=== PATIENT | female | born 1990 | race Two or more races ===

== ENCOUNTER 2020-02-19 18:11 | Emergency (ER) | payer OTHER ==
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
[2020-02-19] MEDS ORDERED: LORazepam 2 MG/ML SDV VIAL IM ONE (18:21)
[2020-02-19] MEDS ORDERED: LORazepam 2 MG/ML SDV VIAL ONE (18:24)
[2020-02-19 18:55] VITALS: BP 141/110; TEMP 98.8; BMI 60.5
[2020-02-19 19:40] VITALS: PULSE 90
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
[2020-02-19] MEDS ORDERED: SODIUM CHLORIDE 0.9% 500 ML INFUS.BAG IV ONE (19:59)
[2020-02-19] MEDS ORDERED: ALPRAZolam 1 MG TABLET PO PRN (20:11)
[2020-02-19] MEDS ORDERED: ALPRAZolam 1 MG TABLET ONE (20:13)
[2020-02-19] MEDS ORDERED: HALOPERIDOL LACTATE 5 MG/ML IM ONE (20:47)
[2020-02-19] MEDS ORDERED: HALOPERIDOL LACTATE 5 MG/ML ONE (20:47)
[2020-02-19 22:58] LABS: BASO % 1.3 % (0-2.0); EOS % 1.5 % (0-4.5); HEMATOCRIT 31.9 % (32.4-45.2); LYMPH % 24.3 % (8-40); MCH 24.1 pg (25.7-33.7); MCHC 31.4 g/dl (32.0-36.0); MEAN CELL VOLUME 76.5 fl (80-96); MEAN PLT VOLUME 8.9 fl (7.5-11.1); MONO % 5.8 % (3.8-10.2); NEUT % 67.1 % (42.8-82.8); PLATELET COUNT 296 K/MM3 (134-434); RBC 4.17 M/mm3 (3.60-5.2); RDW 16.6 % (11.6-15.6); WHITE BLOOD COUNT 10.9 K/mm3 (4.0-10.0)
[2020-02-19 23:08] LABS: INR 1.23 (0.83-1.09); PROTHROMBIN TIME (PATIENT) 14.5 SEC (9.7-13.0)
[2020-02-19 23:11] LABS: ACTIVATED PTT 29.2 SECONDS (25.2-36.5)
[2020-02-19 23:32] LABS: ALBUMIN 3.2 g/dl (3.4-5.0); ALK PHOS 68 U/L (45-117); ANION GAP 9 MMOL/L (8-16); BLOOD UREA NITROGEN 7.1 mg/dL (7-18); CHLORIDE 107 mmol/L (98-107); CO2 22 mmol/L (21-32); CREATININE 0.6 mg/dL (0.55-1.3); GLUCOSE,RANDOM 74 mg/dL (74-106); POTASSIUM 4.2 mmol/L (3.5-5.1); SGOT/AST 22 U/L (15-37); SGPT/ALT 24 U/L (13-61); SODIUM 137 mmol/L (136-145); TOT PROT 7.6 g/dl (6.4-8.2)
[2020-02-19 23:41] LABS: BILIRUBIN,TOTAL 0.3 mg/dL (0.2-1)
--- NOTE | 2020-02-20 08:53 | EKG ---
Test Reason : Blood Pressure : / mmHG Vent. Rate : 103 BPM Atrial Rate : 103 BPM P-R Int : 148 ms QRS Dur : 076 ms QT Int : 352 ms P-R-T Axes : 040 016 049 degrees QTc Int : 461 ms SINUS TACHYCARDIA OTHERWISE NORMAL ECG NO PREVIOUS ECGS AVAILABLE Confirmed by Jerri Matthews ([id number]) on 02/20/2020 8:53:16 AM Referred By: Confirmed By:Jerri Matthews
== END 2020-02-20 00:35 | disposition home or self-care (01) ==
LOC: JER 18:11
PROC: 3E023NZ Introduction of Analgesics, Hypnotics, Sedatives into Muscle, Percutaneous Approach (ICD-10-PCS; principal; 2020-02-19)
PROC: 3E023GC Introduction of Other Therapeutic Substance into Muscle, Percutaneous Approach (ICD-10-PCS; 2020-02-19)
DX: F41.0 Panic disorder [episodic paroxysmal anxiety] (principal)
CPT/HCPCS: 36415; 71045-TC-FY; 80053; 84484; 84703; 85025; 85610; 85730; 93005; 93010; 99285-25

== ENCOUNTER 2024-11-23 16:52 | Emergency (ER) | payer SELFPAY ==
[2024-11-23 17:05] VITALS: BP 124/80; PULSE 109; RESP 20; TEMP 98.4; BMI 39.1
[2024-11-23] MEDS: KETOROLAC TROMETHAMINE 15 MG/ML VIAL IVPUSH ONE (18:13)
[2024-11-23] MEDS ORDERED: LIDOCAINE 4% PATCH TP ONE (18:15)
[2024-11-23] MEDS ORDERED: ACETAMINOPHEN INJECTION 100 ML ONE (18:15)
[2024-11-23] MEDS: LIDOCAINE 4% PATCH TP ONE (18:37)
[2024-11-23] MEDS: ACETAMINOPHEN 1000 MG/100 ML BAG IVPB ONE (18:37)
[2024-11-23 18:42] LABS: ABSOLUTE IMMATURE GRANULOCYTES 0.02 x10^3/uL (0.0-0.031); BASOPHILS # 0.05 x10^3/uL (0.01-0.08); EOSINOPHIL % 0.2 % (0.7-5.8); EOSINOPHILS # 0.02 x10^3/uL (0.04-0.36); HEMATOCRIT 40.1 % (34.1-44.9); HEMOGLOBIN 12.9 g/dL (11.2-15.7); MCHC 32.2 g/dl (32.2-35.5); MEAN CELL VOLUME 91.1 fl (79.4-94.8); MEAN PLT VOLUME 11.2 fl (9.4-12.3); MONOCYTE # 0.41 x10^3/uL (0.24-0.86); MONOCYTE % 4.9 % (4.7-12.5); PLATELET COUNT 231 x10^3/uL (182-369); RDW 12.6 % (12.1-16.8)
[2024-11-23 19:05] LABS: POTASSIUM 3.3 mmol/L (3.5-5.1)
[2024-11-23 19:07] LABS: CALCIUM 9.6 mg/dL (8.5-10.1)
[2024-11-23 19:08] LABS: ALBUMIN 3.3 g/dl (3.4-5.0); BLOOD UREA NITROGEN 7.3 mg/dL (7-18)
[2024-11-23 19:11] LABS: CREATININE 0.7 mg/dL (0.55-1.3)
[2024-11-23 19:12] LABS: BILIRUBIN,TOTAL 0.8 mg/dL (0.2-1)
[2024-11-23 19:13] LABS: TOT PROT 6.7 g/dl (6.4-8.2)
[2024-11-23] MEDS ORDERED: diazePAM 5 MG TABLET ONE (19:27)
[2024-11-23] MEDS: diazePAM 5 MG TABLET PO ONE (19:35)
[2024-11-23] MEDS ORDERED: KETOROLAC TROMETHAMINE 15 MG/ML VIAL ONE (19:39)
[2024-11-23] MEDS: KETOROLAC TROMETHAMINE 30 MG/1 ML VIAL IVPUSH ONE (19:41)
[2024-11-23 19:45] LABS: MAGNESIUM 1.8 mg/dL (1.8-2.4)
[2024-11-23] MEDS ORDERED: oxyCODONE HCL 5 MG TABLET ONE (20:47)
[2024-11-23] MEDS: oxyCODONE HCL 5 MG TABLET PO ONE (20:51)
[2024-11-23] MEDS ORDERED: LIDOCAINE PATCH REMOVAL MC SCH (22:00)
== END 2024-11-23 21:10 | disposition home or self-care (01) ==
LOC: JER 16:52
PROC: 3E033NZ Introduction of Analgesics, Hypnotics, Sedatives into Peripheral Vein, Percutaneous Approach (ICD-10-PCS; principal; 2024-11-23)
PROC: 3E0333Z Introduction of Anti-inflammatory into Peripheral Vein, Percutaneous Approach (ICD-10-PCS; 2024-11-23)
DX: M54.50 Low back pain, unspecified (principal); R06.02 Shortness of breath; R00.0 Tachycardia, unspecified; M25.561 Pain in right knee; M25.562 Pain in left knee; G40.909 Epilepsy, unspecified, not intractable, without status epilepticus
CPT/HCPCS: 36415; 80053; 83605; 83735; 84703; 85025; 93005; 93010; 99284-25; J0131